=== PATIENT | female | born 1990 | race African-American/Black ===

== ENCOUNTER 2017-08-23 22:05 | Emergency (ER) | payer OTHER ==
[~2017-08-23] VITALS: Ht 165.1 cm; Wt 54.4 kg
[~2017-08-23 22:05] MED LIST: IBUPROFEN 600600 M1 PO; LOPERAMIDE 2 MG2 M1 PO; NOHOMEMEDICATIONS; NORCO 5-325 TA1 EACH PO; PRENATAL; ZANTAC 150MG T150 MG PO; ZOFRAN ODT4 MG PO
[2017-08-23 22:36] LABS: URINE BILIRUBIN 2+ (Negative); URINE BLOOD NEGATIVE (Negative); URINE CLARITY CLEAR; URINE COLOR YELLOW; URINE GLUCOSE-RANDOM* NEGATIVE (Negative); URINE KETONES 1+ (Negative); URINE LEUKOCYTES TRACE (Negative); URINE NITRITE NEGATIVE (Negative); URINE PROTEIN (DIPSTICK) TRACE (Negative)
[2017-08-23 22:40] LABS: ICTOTEST (BILI CONFIRMATORY) Positive (Negative)
[2017-08-23 23:38] LABS: ABSOLUTE NEUTROPHILS 5.2 thou/uL (1.4-8.2); BASOPHILS 0.4 % (0.0-2.0); EOSINOPHILS 0.5 % (0.0-3.0); HEMATOCRIT 37.7 % (37.0-47.0); HEMOGLOBIN 12.9 gm/dL (12.0-15.0); LYMPHOCYTES 21.8 % (24.0-44.0); MCH 34.3 pg (26.0-34.0); MCHC 34.1 g/dL (28.0-37.0); MCV 100.3 fL (80.0-100.0); MONOCYTES 8.7 % (1.0-8.0); PLATELET COUNT 229 thou/uL (150-400); POLYS 68.6 % (36.0-66.0); RBC 3.75 mil/uL (4.20-5.00); RDW 14.8 % (10.5-14.5); WBC 7.6 thou/uL (4.0-11.0)
[2017-08-23 23:47] LABS: CALCIUM 9.3 mg/dL (8.5-10.1); CREATININE 0.7 mg/dL (0.6-1.0); POTASSIUM 3.3 mmol/L (3.5-5.1)
[2017-08-23] MEDS ORDERED: ONDANSETRON HCL4 M2 PO (23:50)
[2017-08-23] MEDS ORDERED: IBUPROFEN 600600 M1 PO (23:50)
[2017-08-23 23:53] LABS: ALBUMIN 3.5 g/dL (3.4-5.0); TOTAL BILIRUBIN 0.4 mg/dL (<0.1-1.0); TOTAL PROTEIN 6.9 g/dL (6.4-8.2)
[2017-08-23] MEDS ORDERED: POTASSIUM20 PO (23:56)
== END 2017-08-24 00:29 | disposition home or self-care (01) ==
LOC: ER 22:05
PROVIDERS: Nurse Practitioner
DX: R10.2 Pelvic and perineal pain (principal)

== ENCOUNTER 2017-09-28 20:17 | Emergency (ER) | payer OTHER ==
[~2017-09-28] VITALS: Ht 162.6 cm; Wt 51.3 kg
[~2017-09-28 20:17] MED LIST changes: +ONDANSETRON HCL4 M2 PO; +POTASSIUM20 PO
[2017-09-28] MEDS ORDERED: NORCO 5-325 TA1 EACH PO (20:32)
[2017-09-28] MEDS ORDERED: IBUPROFEN 600600 M1 PO (20:32)
[2017-09-28 20:33] VITALS: BP 111/79
== END 2017-09-28 20:56 | disposition home or self-care (01) ==
LOC: ER 20:17
DX: M54.6 Pain in thoracic spine (principal)

== ENCOUNTER 2018-05-28 15:18 | Emergency (ER) | payer OTHER ==
[~2018-05-28] VITALS: Ht 162.6 cm; Wt 53.1 kg
[2018-05-28 15:21] VITALS: BP 108/71
[2018-05-28] MEDS ORDERED: MOBIC15 MG PO (15:40)
[2018-05-28] MEDS ORDERED: VALIUM5 MG PO (15:40)
== END 2018-05-28 16:14 | disposition home or self-care (01) ==
LOC: ER 15:18
DX: R51 Headache (principal); M54.2 Cervicalgia; M54.5 Low back pain; V89.2XXA Person injured in unspecified motor-vehicle accident, traffic, initial encounter; Y93.89 Activity, other specified; Y92.89 Other specified places as the place of occurrence of the external cause; Y99.8 Other external cause status

== ENCOUNTER 2021-01-15 04:58 | Emergency (ER) | payer OTHER ==
[~2021-01-15] VITALS: Ht 162.6 cm; Wt 54.4 kg
[~2021-01-15 04:58] MED LIST changes: +MOBIC15 MG PO; +VALIUM5 MG PO
[2021-01-15 05:30] LABS: URINE BILIRUBIN NEGATIVE (Negative); URINE BLOOD TRACE (Negative); URINE CLARITY CLEAR; URINE COLOR YELLOW; URINE GLUCOSE-RANDOM* NEGATIVE (Negative); URINE KETONES 3+ (Negative); URINE LEUKOCYTES-REFLEX NEGATIVE (Negative); URINE NITRITE-REFLEX NEGATIVE (Negative); URINE PROTEIN (DIPSTICK) 1+ (Negative); URINE SPECIFIC GRAVITY >= 1.030 (1.005-1.035); URINE UROBILINOGEN 0.2 E.U./dl (0.2-1.0)
[2021-01-15] MEDS ORDERED: NOHOMEMEDICATIONS (05:34)
[2021-01-15 05:37] LABS: URINE REDUCING SUBSTANCE 0 %
[2021-01-15 05:39] LABS: BACTERIA-REFLEX 1-9 Few /HPF (None Seen); CRYSTALS None Seen /LPF (None Seen); HYALINE CASTS 0-3 Few /LPF (None Seen); MUCUS 0-3 Light strn/LPF (None Seen); SQUAMOUS 0-3 Few /LPF (0-3); URINE RBC None Seen /HPF (NONE SEEN); URINE WBC-REFLEX None Seen /HPF (0-5)
[2021-01-15 06:04] LABS: ABSOLUTE NEUTROPHILS 6.6 thou/uL (1.4-8.2); BASOPHILS 0.4 % (0.0-2.0); HEMATOCRIT 46.2 % (37.0-47.0); HEMOGLOBIN 15.4 gm/dL (12.0-15.0); LYMPHOCYTES 12.3 % (24.0-44.0); MCH 37.4 pg (26.0-34.0); MCHC 33.4 g/dL (28.0-37.0); MCV 111.7 fL (80.0-100.0); PLATELET COUNT 341 thou/uL (150-400); POLYS 81.3 % (36.0-66.0); RBC 4.14 mil/uL (4.20-5.00); RDW 15.8 % (10.5-14.5); WBC 8.1 thou/uL (4.0-11.0)
[2021-01-15 06:15] LABS: ALBUMIN 4.6 g/dL (3.4-5.0); CALCIUM 9.9 mg/dL (8.5-10.1); CREATININE 1.1 mg/dL (0.6-1.0); TOTAL BILIRUBIN 1.1 mg/dL (0.2-1.0)
[2021-01-15 06:18] LABS: POTASSIUM 6.2 mmol/L (3.5-5.1)
[2021-01-15] MEDS ORDERED: ZOFRAN ODT4 MG PO (06:47)
[2021-01-15] MEDS ORDERED: PEPCID40 MG PO (06:47)
[2021-01-15 07:07] VITALS: BP 113/63
[2021-01-15 08:43] LABS: ANISOCYTOSIS SLIGHT; MACROCYTES 2+; PLATELET ESTIMATE NORMAL
== END 2021-01-15 07:23 | disposition home or self-care (01) ==
LOC: ER 04:58
PROVIDERS: Emergency Medicine
DX: K29.20 Alcoholic gastritis without bleeding (principal); Z20.822 Contact with and (suspected) exposure to COVID-19; R11.2 Nausea with vomiting, unspecified; R19.7 Diarrhea, unspecified; K85.90 Acute pancreatitis without necrosis or infection, unspecified

== ENCOUNTER 2021-05-17 10:56 | Emergency (ER) | payer OTHER ==
[~2021-05-17] VITALS: Ht 162.6 cm; Wt 49.9 kg
[~2021-05-17 10:56] MED LIST changes: +PEPCID40 MG PO
[2021-05-17] MEDS ORDERED: MOBIC7.5 MG PO (12:20)
[2021-05-17 12:31] VITALS: BP 126/85
--- NOTE | 2021-05-17 14:12 | EKG ---
[address] [address] ELECTROCARDIOGRAM REPORT Name: CAYETANO MACIEL [facility]: [facility]heliaShelia#: [id number] Admission: 05/17/21 Attend Phys: Discharge: 05/17/21 Date of : 86 Report #: [id number] [facility] ED Test Date: 2021-05-17 Test Time: 11:34:49 Pat Name: CAYETANO MACIEL Department: Room: Gender: F Professor Of Biological Sciences: SUDHA : 1990 Requested By: Lius Joseph Order Number: [id number] MD: Dalton Monique Measurements Intervals Mobile Rate: 83 P: 37 NH: 120 QRS: 45 QRSD: 83 T: 60 QT: 379 QTc: 446 Interpretive Statements Sinus rhythm Compared to ECG 04/02/2013 15:41:12 Myocardial infarct finding no longer present Electronically Signed On 05-17-2021 14:12:05 [employer] by Dalton Monique [email or web address] <ELECTRONICALLY SIGNED> By: Dalton Monique MD, [facility] 05/17/21 1412 [id number] Dalton Monique MD, FACC /EPI
== END 2021-05-17 12:34 | disposition home or self-care (01) ==
LOC: ER 10:56
DX: R07.81 Pleurodynia (principal); M79.675 Pain in left toe(s); Z79.899 Other long term (current) drug therapy; Y04.0XXA Assault by unarmed brawl or fight, initial encounter; Y93.89 Activity, other specified; Y92.89 Other specified places as the place of occurrence of the external cause; Y99.8 Other external cause status

== ENCOUNTER 2021-05-19 12:51 | Emergency (ER) | payer OTHER ==
[~2021-05-19] VITALS: Ht 162.6 cm; Wt 49.9 kg
[~2021-05-19 12:51] MED LIST changes: +MOBIC7.5 MG PO
[2021-05-19] MEDS ORDERED: NORCO5 PO (14:51)
[2021-05-19] MEDS ORDERED: CYCLOBENZAPRINE5 MG PO (14:51)
[2021-05-19 15:28] VITALS: BP 115/70
== END 2021-05-19 18:46 | disposition home or self-care (01) ==
LOC: ER 12:51
DX: S29.011A Strain of muscle and tendon of front wall of thorax, initial encounter (principal); Z85.3 Personal history of malignant neoplasm of breast; Z79.891 Long term (current) use of opiate analgesic; Z79.899 Other long term (current) drug therapy; Y04.0XXA Assault by unarmed brawl or fight, initial encounter; Y93.89 Activity, other specified; Y92.89 Other specified places as the place of occurrence of the external cause; Y99.8 Other external cause status